=== PATIENT | male | born 1960 | race Caucasian/White ===

== ENCOUNTER 2016-12-01 06:32 | Emergency (ER) | payer OTHER ==
[2016-12-01] MEDS ORDERED: NS 0.9% 1000 ML* 1,000 ML IV ONE (07:25)
[2016-12-01 07:37] LABS: Hematocrit 43 % (42-52); Hemoglobin 14.9 g/dl (14.0-18.0); Mean Corpuscular HGB Conc 34 g/dl (31-36); Mean Corpuscular Hemoglobin 31 pg (27-31); Mean Corpuscular Volume 90 fL (80-94); Mean Platelet Volume 7 um3 (7.4-10.4); Red Blood Count 4.82 10^6/ul (4.0-5.4); Red Cell Distribution Width 14 % (10.5-15); White Blood Count 7.6 10^3/ul (3.5-10.8)
[2016-12-01 07:47] LABS: Albumin 3.9 g/dL (3.2-5.2); BUN/Creatinine Ratio 19.5 (8-20); C Reactive Protein 5.46 mg/L (< 5.00); Calcium 8.9 mg/dL (8.6-10.3); EGFR African American 125.9 (>60); EGFR Non-African American 97.9 (>60); Total Bilirubin 0.4 mg/dL (0.2-1.0); Total Protein 6.9 g/dL (6.4-8.9)
[2016-12-01 07:51] LABS: Troponin I 0.01 ng/mL (<0.04)
[2016-12-01 08:09] LABS: Potassium 3.7 mmol/L (3.5-5.0)
[2016-12-01 10:43] VITALS: BP 130/80
--- NOTE | 2016-12-01 11:08 | RAD ---
Indication: Cough. 2 views of the chest including dual energy PA views demonstrate no mediastinal shift. Heart is of normal size and configuration. Lung patten demonstrate no pleural fluid, pneumonia or pneumothorax. IMPRESSION: No active cardiopulmonary disease is noted.
--- NOTE | 2016-12-01 17:37 | ED ---
Mona Simeon Thomas, scribed for Lior Lizarraga MD on 12/01/16 at 0711 . Shortness of Breath - HPI Summary HPI Summary: The pt is a 56 y/o M accompanied by son presenting to the ED c/o an episode of SOB that began shortly after he woke up today at 05:30. The episode of SOB has slowly resolved since. The episode was triggered by a cough. During the episode , the patients throat was very dry and he says it was difficult to inhale or . During the episode, the patient reports wheezing, labored breathing, and anxiousness. For the last few weeks, the patient has been having a somewhat productive cough. He reports that he saw a doctor last week who prescribed him amoxicillin for an URI. The antibiotics have not alleviated this cough nor have OTC cough suppressants. For the last few weeks, he has been waking up multiple times during the night secondary to coughing. He has also reported waking up in cold sweats during the night as well. Pt denies any pain or SOB in the ED. PMHx : HTN, kidney stones. PSHx: appendectomy, tonsillectomy. SHx: no smoking, no illicit drugs, no alcohol use. FHx: DM. The patient has not had a routine physical in three years. As far as he knows, he does not have DM. His and son have been dealing with a similar cough for the last few weeks. He denies recent visits out of the country. He also notes that he has found fungus in his home recently. - History of Current Complaint Chief Complaint: EDShortnessOfBreath Hx Obtained From: Patient, Family/[employer] Cutting [employer] - son in room Onset/Duration: Gradual Onset, Lasting Weeks, Still Present Timing: Constant Aggrevating Factors: Nothing Alleviating Factors: Nothing Associated Signs & Symptoms: Cough (Productive), Wheezing, Chills, Diaphoresis Related History: Obesity - Allergy/Home Medications Allergies/Adverse Reactions: Allergies Allergy/AdvReac Type Severity Reaction Status Date / Time No Known Allergies Allergy Verified 05/23/14 13:16 PMH/Surg Hx/FS Hx/Imm Hx Previously Healthy: No Endocrine/Hematology History: Denies: Hx Anticoagulant Therapy, Hx Diabetes, Hx Thyroid Disease Cardiovascular History: Reports: Hx Hypertension - borderline Denies: Hx Pacemaker/ICD Respiratory History: Denies: Hx Asthma, Hx Chronic Obstructive Pulmonary Disease (COPD) History: Reports: Hx Kidney Stones - hx of bilateral nephrolithiasis, Hx Renal Disease - kidney stones Neurological History: Denies: Hx Dementia, Hx Seizures Psychiatric History: Denies: Hx Substance Abuse - Surgical History Surgery Procedure, Year, and Place: appy. tonsilectomy Infectious Disease History: No Infectious Disease History: Denies: Hx Clostridium Difficile, Hx Hepatitis, Hx Human Immunodeficiency Virus (HIV), Hx of Known/Suspected MRSA, Hx Shingles, Hx Tuberculosis, Hx Known/ Suspected VRE, Hx Known/Suspected VRSA, History Other Infectious Disease, Traveled Outside the [place] in Last 30 Days - Family History Known Family History: Positive: Hypertension, Diabetes - Social History Alcohol Use: None Substance Use Type: Reports: None Smoking Status (MU): Never Smoked Tobacco Have You Smoked in the Last Year: No Review of Systems Positive: Skin Diaphoresis - waking up with cold sweats over the night. Negative: Fever Positive: Shortness Of Breath - episode today at 05:30 shortly after he woke up and coughed (with wheezing), there is NONE in the ED, Cough - somewhat productive, onset the last few weeks, not alleviated by OTC cough suppressants or amoxycilin (prescribed last week), Other - POS: wheezing (during episode of SOB) Negative: Other - NEG: any pain Positive: Anxious - during episode of SOB, the pt reports that he was very anxious All Other Systems Reviewed And Are Negative: Yes Physical Exam - Summary Physical Exam Summary: VITAL SIGNS: Reviewed. GENERAL: ~Patient is a well-developed and nourished male who is lying comfortable in the stretcher. ~Patient is not in any acute respiratory distress. HEAD AND FACE: No signs of trauma. ~No ecchymosis, hematomas or skull depressions. No sinus tenderness. EYES: PERRLA, EOMI x 2, No injected conjunctiva, no nystagmus. EARS: Hearing grossly intact. Ear canals and tympanic membranes are within normal limits. MOUTH: Oropharynx within normal limits. NECK: Supple, trachea is midline, no adenopathy, no JVD, no carotid bruit, no c- spine tenderness, neck with full ROM. CHEST: Symmetric, no tenderness at palpation LUNGS: Clear to auscultation bilaterally. No wheezing or crackles. CVS: Regular rate and rhythm, S1 and S2 present, no murmurs or gallops appreciated. ABDOMEN: Soft, non-tender. No signs of distention. No rebound no guarding, and no masses palpated. Bowel sounds are normal. EXTREMITIES: FROM in all major joints, no edema, no cyanosis or clubbing. NEURO: Alert and oriented x 3. No acute neurological deficits. Speech is normal and follows commands. SKIN: Dry and warm Triage Information Reviewed: Yes Vital Signs On Initial Exam: Initial Vitals Temp Pulse Resp BP Pulse Ox 98.3 F 82 23 147/85 99 12/01/16 06:37 12/01/16 06:37 12/01/16 06:37 12/01/16 06:37 12/01/16 06:37 Vital Signs Reviewed: Yes - [place] Coma Scale Coma Scale Total: 15 Diagnostics - Vital Signs Vital Signs Temp Pulse Resp BP Pulse Ox 12/01/16 06:37 98.3 F 82 18 147/85 99 - Laboratory Lab Results: Lab Results 12/01/16 12/01/16 12/01/16 Range/Units 06:45 06:45 06:45 WBC 7.6 (3.5-10.8) 10^3/ul RBC 4.82 (4.0-5.4) 10^6/ul Hgb 14.9 (14.0-18.0) g/dl Hct 43 (42-52) % MCV 90 (80-94) fL MCH 31 (27-31) pg MCHC 34 (31-36) g/dl RDW 14 (10.5-15) % Plt Count 335 (150-450) 10^3/ul MPV 7 L (7.4-10.4) um3 Neut % (Auto) 52.9 (38-83) % Lymph % (Auto) 27.1 (25-47) % [place] % (Auto) 11.9 H (1-9) % Eos % (Auto) 7.4 H (0-6) % Baso % (Auto) 0.7 (0-2) % Absolute Neuts (auto) 4.0 (1.5-7.7) 10^3/ul Absolute Lymphs (auto) 2.1 (1.0-4.8) 10^3/ul Absolute Monos (auto) 0.9 H (0-0.8) 10^3/ul Absolute Eos (auto) 0.6 (0-0.6) 10^3/ul Absolute Basos (auto) 0.1 (0-0.2) 10^3/ul Absolute Nucleated RBC 0 10^3/ul Nucleated RBC % 0 Sodium 137 (133-145) mmol/L Potassium 3.7 (3.5-5.0) mmol/L Chloride 105 (101-111) mmol/L Carbon Dioxide 24 (22-32) mmol/L Anion Gap 8 (2-11) mmol/L BUN 16 (6-24) mg/dL Creatinine 0.82 (0.67-1.17) mg/dL Est GFR ( Amer) 125.9 (>60) Est GFR (Non-Af Amer) 97.9 (>60) BUN/Creatinine Ratio 19.5 (8-20) Glucose 121 H (70-100) mg/dL Lactic Acid 2.2 H* (0.5-2.0) mmol/L Calcium 8.9 (8.6-10.3) mg/dL Total Bilirubin 0.40 (0.2-1.0) mg/dL AST 23 (13-39) U/L ALT 42 (7-52) U/L Alkaline Phosphatase 84 (34-104) U/L Total Creatine Kinase 155 (10-223) U/L Troponin I 0.01 (<0.04) ng/mL C-Reactive Protein 5.46 H (< 5.00) mg/L B-Natriuretic Peptide ( - 100) pg/mL Total Protein 6.9 (6.4-8.9) g/dL Albumin 3.9 (3.2-5.2) g/dL Globulin 3.0 (2-4) g/dL Albumin/Globulin Ratio 1.3 (1-3) 12/01/16 Range/Units 06:45 WBC (3.5-10.8) 10^3/ul RBC (4.0-5.4) 10^6/ul Hgb (14.0-18.0) g/dl Hct (42-52) % MCV (80-94) fL MCH (27-31) pg MCHC (31-36) g/dl RDW (10.5-15) % Plt Count (150-450) 10^3/ul MPV (7.4-10.4) um3 Neut % (Auto) (38-83) % Lymph % (Auto) (25-47) % [place] % (Auto) (1-9) % Eos % (Auto) (0-6) % Baso % (Auto) (0-2) % Absolute Neuts (auto) (1.5-7.7) 10^3/ul Absolute Lymphs (auto) (1.0-4.8) 10^3/ul Absolute Monos (auto) (0-0.8) 10^3/ul Absolute Eos (auto) (0-0.6) 10^3/ul Absolute Basos (auto) (0-0.2) 10^3/ul Absolute Nucleated RBC 10^3/ul Nucleated RBC % Sodium (133-145) mmol/L Potassium (3.5-5.0) mmol/L Chloride (101-111) mmol/L Carbon Dioxide (22-32) mmol/L Anion Gap (2-11) mmol/L BUN (6-24) mg/dL Creatinine (0.67-1.17) mg/dL Est GFR ( Amer) (>60) Est GFR (Non-Af Amer) (>60) BUN/Creatinine Ratio (8-20) Glucose (70-100) mg/dL Lactic Acid (0.5-2.0) mmol/L Calcium (8.6-10.3) mg/dL Total Bilirubin (0.2-1.0) mg/dL AST (13-39) U/L ALT (7-52) U/L Alkaline Phosphatase (34-104) U/L Total Creatine Kinase (10-223) U/L Troponin I (<0.04) ng/mL C-Reactive Protein (< 5.00) mg/L B-Natriuretic Peptide 20 ( - 100) pg/mL Total Protein (6.4-8.9) g/dL Albumin (3.2-5.2) g/dL Globulin (2-4) g/dL Albumin/Globulin Ratio (1-3) Result Diagrams: 12/01/16 06:45 12/01/16 06:45 Lab Statement: Any lab studies that have been ordered have been reviewed, and results considered in the medical decision making process. - Radiology CXR Xray Interpretation: No Acute Changes - no active cardiopulmonary disease is noted. Radiology Interpretation Completed By: Radiologist - EKG 07:29 Cardiac Rate: NL - 80 BPM EKG Interpretation: SR with no ST elevations. Q Wave in V2, V3. Course/Dx - Course Assessment/Plan: The pt is a 56 y/o M accompanied by son presenting to the ED c/ o an episode of SOB that began shortly after he woke up today at 05:30. The episode of SOB has slowly resolved since. The episode was triggered by a cough. During the episode, the patients throat was very dry and he says it was difficult to inhale or . During the episode, the patient reports wheezing , labored breathing, and anxiousness. For the last few weeks, the patient has been having a somewhat productive cough. He reports that he saw a doctor last week who prescribed him amoxicillin for an URI. The antibiotics have not alleviated this cough nor have OTC cough suppressants. For the last few weeks, he has been waking up multiple times during the night secondary to coughing. He has also reported waking up in cold sweats during the night as well. Pt denies any pain or SOB in the ED. PMHx: HTN, kidney stones. PSHx: appendectomy, tonsillectomy. SHx: no smoking, no illicit drugs, no alcohol use. FHx: DM. The patient has not had a routine physical in three years. As far as he knows, he does not have DM. His and son have been dealing with a similar cough for the last few weeks. He denies recent visits out of the country. He also notes that he has found fungus in his home recently. Bloodwork is without significant abnormality except glucose 121, lactic acid 2.2, and CRP 5.4. The CXR shows no acute pathology. In the Ed course the patient has remained stable. I believe the patients symptoms are secondary to viral infection. Since all the test results are normal, the patient will be discharged with follow up from his PCP. The patient is hemodynamically stable and alert and oriented x3. I discussed all the findings and test results with the patient. Patient was instructed to return to the emergency room immediately if any of the symptoms return or worsens. Plan of care was discussed with the patient and understands and agrees. All questions were answered at patient satisfaction. There were no further complaints or concerns. - Diagnoses Differential Diagnosis/HQI/PQRI: Positive: Asthma, Bronchitis, CHF, Pneumonia, Other - Allergic rhinitis, post nasal drip, URI, Provider Diagnoses: Cough Discharge - Discharge Plan Condition: Stable Disposition: HOME Patient Education Materials: Chronic Cough (ED) Referrals: Jose Nettles MD [Primary Care Provider] - 3 Days The documentation as recorded by the Mona bah Thomas accurately reflects the service I personally performed and the decisions made by , Lior Lizarraga MD.
== END 2016-12-01 10:40 | disposition home or self-care (01) ==
LOC: ED 06:32
DX: R05 Cough (principal); R06.2 Wheezing; R06.02 Shortness of breath; E66.9 Obesity, unspecified
CPT/HCPCS: 36415; 71020; 80053; 82550; 83605; 83880; 84484; 85025; 86140; 87040; 87070; 87205; 93005; 99282